=== PATIENT | female | born 1995 | race African-American/Black ===

== ENCOUNTER 2017-03-18 14:34 | Emergency (ER) | payer OTHER, SELFPAY ==
[2017-03-18] MEDS ORDERED: Ondansetron ODT 4 MG TAB ONE (15:26)
== END 2017-03-18 16:23 | disposition home or self-care (01) ==
LOC: BURERS 14:34
DX: A08.4 Viral intestinal infection, unspecified (principal); J45.909 Unspecified asthma, uncomplicated
CPT/HCPCS: 99283; Q0162

== ENCOUNTER 2017-12-12 23:09 | Emergency (ER) | payer OTHER, SELFPAY ==
[2017-12-12 23:32] LABS: Clarity Cloudy (Clear); Glucose, Urine (Dipstick) Negative (Negative); Leukocyte Trace (Negative); Nitrite Negative (Negative); Protein, Urine (Dipstick) 100 mg/dL (Neg-Trace); Specific Gravity, Urine 1.034 (1.002-1.036); pH, Urine 6.5 (5.0-9.0)
[2017-12-12 23:33] LABS: Bilirubin Negative (Negative); Blood, Urine Trace (Negative); Urobilinogen 0.2 mg/dL (0.2-1.0)
[2017-12-12 23:40] LABS: Bacteria/HPF 3+ HPF (None Seen); RBC/HPF 0-3 HPF (0-3)
[2017-12-12] MEDS ORDERED: Cephalexin 500 MG CAP ONE (23:45)
== END 2017-12-12 23:47 | disposition home or self-care (01) ==
LOC: BURERS 23:09
DX: N39.0 Urinary tract infection, site not specified (principal); J45.909 Unspecified asthma, uncomplicated
CPT/HCPCS: 81003; 81015; 99283

== ENCOUNTER 2018-03-05 04:50 | Emergency (ER) | payer MEDICAID, OTHER ==
[2018-03-05] MEDS ORDERED: AMOXicillin 250 MG CAP ONE (05:36)
[2018-03-05] MEDS ORDERED: Benzonatate 100 MG CAP ONE (05:36)
== END 2018-03-05 05:40 | disposition home or self-care (01) ==
LOC: BURERS 04:50
DX: J20.9 Acute bronchitis, unspecified (principal); J45.909 Unspecified asthma, uncomplicated
CPT/HCPCS: 87804; 99283